=== PATIENT | male | born 1990 | race African-American/Black ===

== ENCOUNTER 2017-06-29 16:25 | Inpatient (IN) | payer SELFPAY ==
[~2017-06-29] VITALS: Ht 170.2 cm; Wt 104.4 kg
[2017-06-29 17:22] LABS: Basophils # (auto) 0.1 uL; Basophils % (auto) 0.5 % (0.0-2.0); Mean Corpuscular Hemoglobin 26.7 pg (28.0-32.0); Mean Corpuscular Hgb Conc. 32.7 g/dL (32.0-36.0); Mean Corpuscular Volume 81.8 fL (80.0-100.0); Red Cell Distribution Width 13.9 % (11.8-14.3)
[2017-06-29 17:24] LABS: Eosinophils # (auto) 0.1 uL; Eosinophils % (auto) 1.2 % (0.0-7.0); Hematocrit 43.2 % (41.0-53.0); Hemoglobin 14.1 g/dL (13.5-17.5); Lymphocytes # (auto) 0.9 uL; Lymphocytes % (auto) 7.6 % (10.0-50.0); Mean Platelet Volume 9.1 fL (6.9-10.8); Monocytes # (auto) 0.8 uL; Monocytes % (auto) 6.2 % (0.0-12.0); Neutrophils # (auto) 10.5 uL; Neutrophils % (auto) 84.5 % (37.0-80.0); Platelet Count (auto) 208 10^3/uL (140-450); White Blood Cell 12.4 10^3/uL (4.4-10.8)
[2017-06-29 17:37] LABS: INR 1.02 (0.9-1.15); Partial Thromboplastin Time 28.5 sec (22.64-33.71); Prothrombin Time 11.1 sec (9.37-12.3)
[2017-06-29 17:47] LABS: Albumin 3.8 g/dL (3.4-5.0); BUN/Creatinine Ratio 13.6; Bilirubin, Total 0.2 mg/dL (0.2-1.0); Calcium 8.4 mg/dL (8.5-10.1); Magnesium 2.2 mg/dL (1.6-2.6); Potassium 4.2 mmol/L (3.5-5.1); Total Protein 7.2 g/dL (6.4-8.2)
[2017-06-29] MEDS ORDERED: ACETAMINOPHEN 500 MG TAB PO PRN (22:15)
[2017-06-29] MEDS ORDERED: MORPHINE SULF INJ 2 MG/ML SYRINGE 1ML IV PRN (22:15)
[2017-06-29] MEDS ORDERED: HYDROcodone-ACET 5/325MG TAB PO PRN (22:15)
[2017-06-29] MEDS ORDERED: NITROGLYCERIN 0.4 MG SL TAB SL PRN (22:15)
[2017-06-29] MEDS ORDERED: ONDANSETRON HCL 4 MG/2 ML VIAL IV PRN (22:15)
[2017-06-29 22:38] LABS: Basophils # (auto) 0 uL; Basophils % (auto) 0.6 % (0.0-2.0); Eosinophils # (auto) 0.1 uL; Eosinophils % (auto) 1.7 % (0.0-7.0); Hematocrit 41.5 % (41.0-53.0); Hemoglobin 13.5 g/dL (13.5-17.5); Lymphocytes # (auto) 1.5 uL; Lymphocytes % (auto) 18.3 % (10.0-50.0); Mean Corpuscular Hemoglobin 26.5 pg (28.0-32.0); Mean Corpuscular Hgb Conc. 32.5 g/dL (32.0-36.0); Mean Corpuscular Volume 81.6 fL (80.0-100.0); Mean Platelet Volume 9.1 fL (6.9-10.8); Monocytes # (auto) 0.6 uL; Neutrophils # (auto) 5.8 uL; Neutrophils % (auto) 72.4 % (37.0-80.0); Platelet Count (auto) 187 10^3/uL (140-450); Red Cell Distribution Width 13.8 % (11.8-14.3); White Blood Cell 8.1 10^3/uL (4.4-10.8)
[2017-06-29 22:42] LABS: Urine Bilirubin Negative (Negative); Urine Blood Negative /uL (Negative); Urine Color Yellow (Yellow); Urine Glucose Normal (Normal); Urine Ketone Negative (Negative); Urine Mucus FEW (None Seen); Urine Nitrite Negative (Negative); Urine RBC <1 /hpf (0 - 3); Urine Urobilinogen Normal (Negative)
[2017-06-29] MEDS ORDERED: cloNIDine HCL 0.1 MG TAB PO PRN (22:45)
[2017-06-29 23:01] LABS: BUN/Creatinine Ratio 11.3; Calcium 8.5 mg/dL (8.5-10.1); Potassium 4.1 mmol/L (3.5-5.1)
[2017-06-30] VITALS (8 sets, daily range): BP systolic 136–160; BP diastolic 82–106
[2017-06-30] MEDS: amLODIPine BESYLATE 5 MG TAB PO SCH (10:09)
[2017-07-01 05:00] VITALS: BP 150/91
[2017-07-01 08:00] VITALS: BP 140/82
[2017-07-01 09:00] VITALS: BP 140/82
[2017-07-01] MEDS: amLODIPine BESYLATE 5 MG TAB PO SCH (09:39)
[2017-07-01] MEDS ORDERED: ATENOLOL 25 MG TAB PO SCH (10:00)
[2017-07-01 13:00] VITALS: BP 170/88
[2017-07-01 15:52] VITALS: BP 140/82
[2017-07-01 17:00] VITALS: BP 136/79
== END 2017-07-01 17:40 | disposition home or self-care (01) | DRG 151 ==
LOC: ER 16:29 → TELE 16:30 → TELE-WESTW 06-30 04:00
PROVIDERS: ADMIT Nurse Practitioner Family; ATTEND Internal Medicine Pulmonary Disease
DX: R04.0 Epistaxis (principal); E66.9 Obesity, unspecified; I10 Essential (primary) hypertension; F17.210 Nicotine dependence, cigarettes, uncomplicated; R51 Headache; Z68.36 Body mass index [BMI] 36.0-36.9, adult; Z82.49 Family history of ischemic heart disease and other diseases of the circulatory system
CPT/HCPCS: 30901; 36415; 70450; 71010; 80048; 80053; 80307; 81001; 83735; 85025; 85610; 85730; 94761; 99291

== ENCOUNTER 2017-09-28 06:22 | Emergency (ER) | payer BC ==
[~2017-09-28] VITALS: Ht 170.2 cm; Wt 102.1 kg
[2017-09-28] MEDS ORDERED: cloNIDine HCL 0.1 MG TAB ONE (06:32)
[2017-09-28] MEDS ORDERED: cloNIDine HCL 0.1 MG TAB PO ONE (06:45)
[2017-09-28 07:11] LABS: Basophils # (auto) 0 uL; Basophils % (auto) 0.4 % (0.0-2.0); Eosinophils # (auto) 0.2 uL; Hemoglobin 14.5 g/dL (13.5-17.5); Lymphocytes # (auto) 1.4 uL; Red Cell Distribution Width 14.2 % (11.8-14.3); White Blood Cell 7.2 10^3/uL (4.4-10.8)
[2017-09-28 07:13] LABS: Eosinophils % (auto) 3.2 % (0.0-7.0); Hematocrit 44.3 % (41.0-53.0); Mean Corpuscular Hemoglobin 26.6 pg (28.0-32.0); Mean Corpuscular Hgb Conc. 32.8 g/dL (32.0-36.0); Mean Corpuscular Volume 80.9 fL (80.0-100.0); Monocytes # (auto) 0.4 uL; Monocytes % (auto) 5.6 % (0.0-12.0); Neutrophils # (auto) 5.1 uL; Neutrophils % (auto) 70.8 % (37.0-80.0); Nucleated Red Blood Cells % 0.1 %; Platelet Count (auto) 202 10^3/uL (140-450); Red Blood Cells 5.47 10^6/uL (4.5-5.90)
[2017-09-28 07:27] LABS: Albumin 3.7 g/dL (3.4-5.0); BUN/Creatinine Ratio 13.5; Bilirubin, Total 0.3 mg/dL (0.2-1.0); Calcium 8.7 mg/dL (8.5-10.1); Potassium 4.3 mmol/L (3.5-5.1); Total Protein 7.3 g/dL (6.4-8.2)
[2017-09-28 10:35] LABS: Urine Bacteria NONE SEEN /hpf (None Seen); Urine Blood Negative /uL (Negative); Urine Mucus FEW (None Seen); Urine Specific Gravity 1.017 (1.001-1.035); Urine WBC 1 /hpf (0 - 3)
[2017-09-28 10:42] LABS: Alcohol, Urine < 3.0 mg/dL (0-5); Amphetamine Screen, Urine NEGATIVE (NEGATIVE); Barbiturate Scree,Urine NEGATIVE (NEGATIVE); Benzodiazephine Screen, Urine NEGATIVE (NEGATIVE); Cannabinoid Screen, Urine NEGATIVE (NEGATIVE); Cocaine Screen, Urine NEGATIVE (NEGATIVE); Opiate Scree,Urine NEGATIVE (NEGATIVE); Phencyclidine Screen, Urine NEGATIVE (NEGATIVE)
[2017-09-28 13:06] VITALS: BP 146/83
== END 2017-09-28 13:12 | disposition home or self-care (01) ==
LOC: ER 06:24
DX: I10 Essential (primary) hypertension (principal); Z90.89 Acquired absence of other organs; F17.210 Nicotine dependence, cigarettes, uncomplicated
CPT/HCPCS: 36415; 80053; 80307; 81001; 85025

== ENCOUNTER 2021-08-31 23:07 | Emergency (ER) | payer BC, OTHER ==
[~2021-08-31] VITALS: Ht 167.6 cm; Wt 108.9 kg
[2021-08-31] MEDS ORDERED: LABETALOL HCL 5 MG/ML 4ML SYRINGE IV ONE (23:45)
[2021-09-01 00:11] LABS: Basophils # (auto) 0.1 10 ^3/uL (0-0.2); Hemoglobin 14.8 g/dL (13.5-17.5); Lymphocytes # (auto) 2.3 10 ^3/uL (0.4-5.4); Neutrophils # (auto) 6.4 10 ^3/uL (1.6-8.6); Neutrophils % (auto) 65.2 % (37.0-80.0); White Blood Cell 9.8 10^3/uL (4.4-10.8)
[2021-09-01 00:14] LABS: Eosinophils # (auto) 0.3 10 ^3/uL (0-0.8); Eosinophils % (auto) 3.4 % (0.0-7.0); Hematocrit 46.2 % (41.0-53.0); Lymphocytes % (auto) 23.9 % (10.0-50.0); Mean Corpuscular Hemoglobin 25.7 pg (28.0-32.0); Mean Corpuscular Volume 80.2 fL (80.0-100.0); Monocytes # (auto) 0.6 10 ^3/uL (0-1.3); Monocytes % (auto) 6.5 % (0.0-12.0); Nucleated Red Blood Cells % 0.2 %; Red Blood Cells 5.77 10^6/uL (4.5-5.90); Red Cell Distribution Width 14.3 % (11.8-14.3)
[2021-09-01] MEDS ORDERED: hydrALAZINE HCL 20 MG/ML VL IV ONE (00:15)
[2021-09-01 00:35] LABS: Albumin 3.8 g/dL (3.4-5.0); Calcium 8.9 mg/dL (8.5-10.1); Potassium 4.5 mmol/L (3.5-5.1)
[2021-09-01 00:37] LABS: BUN/Creatinine Ratio 11.9
[2021-09-01 00:39] LABS: Bilirubin, Total 0.5 mg/dL (0.2-1.0); Total Protein 7.4 g/dL (6.4-8.2)
[2021-09-01] MEDS ORDERED: LABETALOL HCL 5 MG/ML ML 20ML VIAL IV ONE ×2 (01:24→04:19)
[2021-09-01] MEDS ORDERED: LABETALOL HCL 5 MG/ML 4ML SYRINGE IV ONE ×4 (01:30→05:30)
[2021-09-01 05:43] VITALS: BP 156/99
[2021-09-01] MEDS ORDERED: TRIA37.55 PO (06:08)
[2021-09-01] MEDS ORDERED: METO-158 PO (06:08)
== END 2021-09-01 06:25 | disposition home or self-care (01) ==
LOC: ER 23:07
DX: I16.0 Hypertensive urgency (principal); F17.210 Nicotine dependence, cigarettes, uncomplicated; Z90.89 Acquired absence of other organs
CPT/HCPCS: 36415; 70450; 80053; 85025; 96374; 96376

== ENCOUNTER 2022-09-17 19:27 | Emergency (ER) | payer OTHER ==
[~2022-09-17] VITALS: Ht 167.6 cm; Wt 108.2 kg
[~2022-09-17 19:27] MED LIST: METO-158 PO; TRIA37.55 PO
[2022-09-17 19:50] VITALS: BP 147/97
[2022-09-17] MEDS ORDERED: CEPH-510 PO (21:31)
[2022-09-17] MEDS ORDERED: IBUP800T27 PO (21:31)
[2022-09-17] MEDS ORDERED: IBUPROFEN 800 MG TAB PO ONE (21:45)
== END 2022-09-17 21:54 | disposition home or self-care (01) ==
LOC: ER 19:27
DX: S81.811A Laceration without foreign body, right lower leg, initial encounter (principal); I10 Essential (primary) hypertension; F17.210 Nicotine dependence, cigarettes, uncomplicated; Z90.89 Acquired absence of other organs; W26.0XXA Contact with knife, initial encounter; Y93.89 Activity, other specified; Y92.89 Other specified places as the place of occurrence of the external cause; Y99.8 Other external cause status
CPT/HCPCS: 12001

== ENCOUNTER 2023-05-25 17:50 | Emergency (ER) | payer OTHER ==
[~2023-05-25] VITALS: Ht 175.3 cm; Wt 112.6 kg
[~2023-05-25 17:50] MED LIST changes: +CEPH-510 PO; +IBUP-1456 PO; -TRIA37.55 PO; +TRIA37.586 PO
[2023-05-25 20:06] LABS: Basophils # (auto) 0.1 10 ^3/uL (0-0.2); Basophils % (auto) 0.6 % (0.0-2.0); Eosinophils # (auto) 0.4 10 ^3/uL (0-0.8); Eosinophils % (auto) 3.5 % (0.0-7.0); Hematocrit 43.6 % (41.0-53.0); Hemoglobin 14.1 g/dL (13.5-17.5); Lymphocytes # (auto) 2.5 10 ^3/uL (0.4-5.4); Lymphocytes % (auto) 21.8 % (10.0-50.0); Mean Corpuscular Hgb Conc. 32.3 g/dL (32.0-36.0); Mean Corpuscular Volume 80.6 fL (80.0-100.0); Monocytes # (auto) 0.8 10 ^3/uL (0-1.3); Monocytes % (auto) 6.6 % (0.0-12.0); Neutrophils # (auto) 7.8 10 ^3/uL (1.6-8.6); Neutrophils % (auto) 67.5 % (37.0-80.0); Red Blood Cells 5.41 10^6/uL (4.5-5.90); White Blood Cell 11.5 10^3/uL (4.4-10.8)
[2023-05-25 20:24] LABS: Alanine Aminotransferase 44 U/L (7-40); Albumin 4.3 g/dL (3.2-4.8); Alkaline Phosphatase 59 U/L (46-116); Anion Gap 6 (5-15); Aspartate Aminotransferase 21 U/L (13-40); BUN/Creatinine Ratio 10.5 (10.0-20.0); Bilirubin, Total 0.3 mg/dL (0.2-1.0); Blood Urea Nitrogen 12 mg/dL (9-23); Calcium 9.2 mg/dL (8.5-10.1); Carbon Dioxide 30 mmol/L (20-30); Chloride 103 mmol/L (98-107); Glucose 103 mg/dL (74-106); Potassium 3.6 mmol/L (3.5-5.1); Sodium 139 mmol/L (136-145); Total Protein 6.9 g/dL (5.7-8.2)
[2023-05-25] MEDS ORDERED: HYDR-4902 PO (21:14)
[2023-05-25] MEDS ORDERED: ZOFR4T PO (21:14)
[2023-05-25] MEDS ORDERED: HYDROcodone-ACET 7.5/325MG TAB PO ONE (21:15)
[2023-05-25] MEDS ORDERED: KETOROLAC TROMETH 60MG/2ML VIAL IM ONE (21:15)
[2023-05-25] MEDS ORDERED: PROCHLORPERAZINE EDISYLATE 5 MG/ML 2ML VIAL IM ONE (21:15)
[2023-05-25 21:34] VITALS: BP 136/99; PULSE 68; RESP 19; O2SAT 100
== END 2023-05-25 21:33 | disposition home or self-care (01) ==
LOC: ER 17:50
DX: R51.9 Headache, unspecified (principal); I10 Essential (primary) hypertension; F17.210 Nicotine dependence, cigarettes, uncomplicated; Z98.890 Other specified postprocedural states
CPT/HCPCS: 36415; 70450; 80053; 85025; 99284; J1885

== ENCOUNTER 2023-08-14 06:05 | Inpatient (IN) | payer OTHER ==
[~2023-08-14] VITALS: Ht 182.9 cm; Wt 101.8 kg
[~2023-08-14 06:05] MED LIST changes: +HYDR-4902 PO; +ZOFR4T PO
[2023-08-14] MEDS ORDERED: SODIUM CHLORIDE 0.9% 1,000 ML IVB ONE (06:45)
[2023-08-14] MEDS ORDERED: PANTOPRAZOLE 40 MG/10 ML VIAL INJ IV ONE (06:45)
[2023-08-14] MEDS ORDERED: ONDANSETRON HCL 4 MG/2 ML VIAL IV ONE (06:45)
[2023-08-14 07:06] LABS: Alanine Aminotransferase 34 U/L (7-40); Albumin 4.7 g/dL (3.2-4.8); Alkaline Phosphatase 57 U/L (46-116); Anion Gap 6 (5-15); Aspartate Aminotransferase 17 U/L (13-40); BUN/Creatinine Ratio 7.9 (10.0-20.0); Blood Urea Nitrogen 9 mg/dL (9-23); Calcium 9.6 mg/dL (8.7-10.4); Carbon Dioxide 29 mmol/L (20-30); Chloride 101 mmol/L (98-107); Glucose 134 mg/dL (74-106); Lipase 43 U/L (12-53); Potassium 3.7 mmol/L (3.5-5.1); Sodium 136 mmol/L (136-145)
[2023-08-14 07:07] LABS: Bilirubin, Total 0.3 mg/dL (0.2-1.0); Total Protein 7.5 g/dL (5.7-8.2)
[2023-08-14 07:08] LABS: Basophils # (auto) 0 10 ^3/uL (0-0.2); Eosinophils # (auto) 0 10 ^3/uL (0-0.8); Monocytes # (auto) 0.6 10 ^3/uL (0-1.3); Nucleated Red Blood Cells % 0.1 %; Red Blood Cells 5.82 10^6/uL (4.5-5.90)
[2023-08-14 07:09] LABS: Basophils % (auto) 0.4 % (0.0-2.0); Eosinophils % (auto) 0.3 % (0.0-7.0); Hematocrit 46.6 % (41.0-53.0); Hemoglobin 15.3 g/dL (13.5-17.5); Lymphocytes # (auto) 1.1 10 ^3/uL (0.4-5.4); Lymphocytes % (auto) 12.6 % (10.0-50.0); Mean Corpuscular Hemoglobin 26.3 pg (28.0-32.0); Mean Corpuscular Hgb Conc. 32.8 g/dL (32.0-36.0); Mean Corpuscular Volume 80.1 fL (80.0-100.0); Monocytes % (auto) 6.2 % (0.0-12.0); Neutrophils # (auto) 7.2 10 ^3/uL (1.6-8.6); Neutrophils % (auto) 80.5 % (37.0-80.0); Red Cell Distribution Width 14.1 % (11.8-14.3); White Blood Cell 8.9 10^3/uL (4.4-10.8)
[2023-08-14] MEDS ORDERED: MORPHINE SULFATE 4 MG/ML SYR/VIAL IV ONE ×2 (08:15→08:45)
[2023-08-14] MEDS ORDERED: DOCUSATE SOD 100 MG CAP PO PRN (10:45)
[2023-08-14] MEDS: SODIUM CHLORIDE 0.9% 1,000 ML IV SCH ×2 (10:45→20:13)
[2023-08-14] MEDS: MORPHINE SULFATE INJ 2 MG/ml SYRG IV PRN (11:27)
[2023-08-14] MEDS: METOPROLOL TARTRATE 50 MG TAB PO SCH (22:41)
[2023-08-15] MEDS ORDERED: traMADol HCL 50 MG TAB PO ONE (03:00)
[2023-08-15] MEDS: SODIUM CHLORIDE 0.9% 1,000 ML IV SCH ×3 (04:15→20:05)
[2023-08-15 06:03] VITALS: PULSE 80; RESP 18; O2SAT 100
[2023-08-15 07:10] LABS: Basophils # (auto) 0 10 ^3/uL (0-0.2); Basophils % (auto) 0.4 % (0.0-2.0); Eosinophils # (auto) 0.1 10 ^3/uL (0-0.8); Hemoglobin 13.9 g/dL (13.5-17.5); Lymphocytes # (auto) 2.3 10 ^3/uL (0.4-5.4); Mean Corpuscular Hemoglobin 26.1 pg (28.0-32.0); Mean Corpuscular Hgb Conc. 32.7 g/dL (32.0-36.0); Neutrophils # (auto) 4.8 10 ^3/uL (1.6-8.6); Nucleated Red Blood Cells % 0.1 %
[2023-08-15 07:12] LABS: Eosinophils % (auto) 1.3 % (0.0-7.0); Hematocrit 42.4 % (41.0-53.0); Lymphocytes % (auto) 28.4 % (10.0-50.0); Mean Corpuscular Volume 79.9 fL (80.0-100.0); Monocytes # (auto) 0.8 10 ^3/uL (0-1.3); Monocytes % (auto) 9.7 % (0.0-12.0); Neutrophils % (auto) 60.2 % (37.0-80.0); Red Blood Cells 5.31 10^6/uL (4.5-5.90)
[2023-08-15 07:24] LABS: Alanine Aminotransferase 29 U/L (7-40); Albumin 4.2 g/dL (3.2-4.8); Alkaline Phosphatase 50 U/L (46-116); Anion Gap 8 (5-15); Aspartate Aminotransferase 17 U/L (13-40); BUN/Creatinine Ratio 7.3 (10.0-20.0); Bilirubin, Total 0.4 mg/dL (0.2-1.0); Blood Urea Nitrogen 8 mg/dL (9-23); Carbon Dioxide 28 mmol/L (20-30); Chloride 104 mmol/L (98-107); Glucose 111 mg/dL (74-106); Potassium 3.9 mmol/L (3.5-5.1); Sodium 140 mmol/L (136-145); Total Protein 6.9 g/dL (5.7-8.2)
[2023-08-15] MEDS: TRIAMTERENE/HCTZ 37.5/25 MG CAP/TAB PO SCH (08:25)
[2023-08-15] MEDS: ONDANSETRON HCL 4 MG/2 ML VIAL IV PRN (08:30)
[2023-08-15] MEDS: MORPHINE SULFATE INJ 2 MG/ml SYRG IV PRN (08:31)
[2023-08-15 08:49] VITALS: BP 152/102; PULSE 86; RESP 20; TEMP 97.6; O2SAT 98
[2023-08-15] MEDS: METOPROLOL TARTRATE 50 MG TAB PO SCH ×2 (09:03→22:43)
[2023-08-15 11:09] LABS: INR 1.01 (0.9-1.15); Partial Thromboplastin Time 35.3 SEC (24.5-34.5); Prothrombin Time 10.6 sec (9.3-11.8)
[2023-08-15 13:00] VITALS: BP 146/86; PULSE 85; RESP 18; TEMP 98.7; O2SAT 95
[2023-08-15 16:20] VITALS: BP 146/90; PULSE 87; RESP 16; TEMP 98.9; O2SAT 92
[2023-08-15 22:00] VITALS: BP 125/74; PULSE 92; RESP 17; TEMP 98.4; O2SAT 96
[2023-08-16] VITALS (7 sets, daily range): BP systolic 124–148; BP diastolic 68–95; PULSE 72–91; RESP 14–17; TEMP 97–98.9; O2SAT 93–99
[2023-08-16] MEDS: SODIUM CHLORIDE 0.9% 1,000 ML IV SCH ×2 (04:25→17:14)
[2023-08-16] MEDS: TRIAMTERENE/HCTZ 37.5/25 MG CAP/TAB PO SCH (06:41)
[2023-08-16] MEDS: MORPHINE SULFATE INJ 2 MG/ml SYRG IV PRN ×2 (08:55→19:54)
[2023-08-16] MEDS: METOPROLOL TARTRATE 50 MG TAB PO SCH ×2 (10:56→21:11)
[2023-08-16] MEDS ORDERED: PIPERACILLIN-TAZOB 3.375GM 100 ML IV SCH (14:00)
[2023-08-16] MEDS ORDERED: MIDAZOLAM HCL 2MG/2ML 2ml VIAL (1mg/ml) ONE ×2 (14:01→16:15)
[2023-08-16] MEDS ORDERED: fentaNYL CITRATE 100 MCG/2 ML VL ONE ×3 (14:01→16:14)
[2023-08-16] MEDS ORDERED: LIDOCAINE W/ EPINEPHRINE 1% 20ML VIAL ONE (14:23)
[2023-08-16] MEDS ORDERED: ceFAZolin 1GM VL ONE (14:43)
[2023-08-16] MEDS ORDERED: DexAMETHasone SOD PHOS 10MG/1ML VIAL INJ ONE (14:46)
[2023-08-16] MEDS ORDERED: PROPOFOL 10 MG/ML 20 ML IV ONE (15:32)
[2023-08-16] MEDS ORDERED: SUGAMMADEX 200mg/2ml Vial (100MG/ML) IV ONE (15:32)
[2023-08-16] MEDS ORDERED: ONDANSETRON HCL 4 MG/2 ML VIAL ONE (15:37)
[2023-08-16] MEDS ORDERED: ACETAMINOPHEN/CODEINE#3 (300/30mg) TAB PO PRN (15:45)
[2023-08-16] MEDS ORDERED: ONDANSETRON HCL 4 MG/2 ML VIAL IV PRN (16:00)
[2023-08-16] MEDS ORDERED: HYDROmorphone HCL 2 MG/ML VL/or syr IV PRN (16:00)
[2023-08-16] MEDS ORDERED: METOCLOPRAMIDE HCL 5MG/ml INJ 2ml VIAL IV PRN (16:00)
[2023-08-16] MEDS: HYDROmorphone HCL 2 MG/ML VL/or syr IV PRN ×4 (16:15→16:45)
[2023-08-17] VITALS (7 sets, daily range): BP systolic 131–155; BP diastolic 65–96; PULSE 63–76; RESP 12–19; TEMP 98.1–98.6; O2SAT 95–98
[2023-08-17] MEDS: MORPHINE SULFATE INJ 2 MG/ml SYRG IV PRN ×2 (00:52→07:51)
[2023-08-17] MEDS: PIPERACILLIN-TAZOB 3.375GM 100 ML IV SCH ×3 (03:13→18:58)
[2023-08-17 05:26] LABS: Basophils # (auto) 0 10 ^3/uL (0-0.2); Basophils % (auto) 0.3 % (0.0-2.0); Eosinophils # (auto) 0 10 ^3/uL (0-0.8); Monocytes # (auto) 0.4 10 ^3/uL (0-1.3); White Blood Cell 10.6 10^3/uL (4.4-10.8)
[2023-08-17 05:28] LABS: Hematocrit 42.6 % (41.0-53.0); Lymphocytes # (auto) 0.9 10 ^3/uL (0.4-5.4); Lymphocytes % (auto) 8.1 % (10.0-50.0); Mean Corpuscular Hemoglobin 26.4 pg (28.0-32.0); Mean Corpuscular Hgb Conc. 32.8 g/dL (32.0-36.0); Mean Corpuscular Volume 80.4 fL (80.0-100.0); Neutrophils # (auto) 9.3 10 ^3/uL (1.6-8.6); Neutrophils % (auto) 87.6 % (37.0-80.0); Red Cell Distribution Width 13.6 % (11.8-14.3)
[2023-08-17 05:39] LABS: Alanine Aminotransferase 92 U/L (7-40); Albumin 4.1 g/dL (3.2-4.8); Alkaline Phosphatase 98 U/L (46-116); Anion Gap 6 (5-15); Aspartate Aminotransferase 70 U/L (13-40); BUN/Creatinine Ratio 7.9 (10.0-20.0); Blood Urea Nitrogen 8 mg/dL (9-23); Calcium 8.8 mg/dL (8.7-10.4); Carbon Dioxide 27 mmol/L (20-30); Chloride 107 mmol/L (98-107); Glucose 140 mg/dL (74-106); Potassium 4.1 mmol/L (3.5-5.1); Sodium 140 mmol/L (136-145)
[2023-08-17 05:40] LABS: Bilirubin, Total 0.7 mg/dL (0.2-1.0); Total Protein 6.9 g/dL (5.7-8.2)
[2023-08-17] MEDS: SODIUM CHLORIDE 0.9% 1,000 ML IV SCH (06:03)
[2023-08-17] MEDS: TRIAMTERENE/HCTZ 37.5/25 MG CAP/TAB PO SCH (06:47)
[2023-08-17] MEDS: ONDANSETRON HCL 4 MG/2 ML VIAL IV PRN (07:51)
[2023-08-17] MEDS: METOPROLOL TARTRATE 50 MG TAB PO SCH ×2 (09:11→21:35)
[2023-08-17] MEDS ORDERED: MORPHINE SULFATE INJ 2 MG/ml SYRG IV ONE (11:45)
[2023-08-17] MEDS ORDERED: MORPHINE SULFATE INJ 2 MG/ml SYRG IV PRN (11:45)
[2023-08-17] MEDS: HYDROcodone-ACET 7.5/325MG TAB PO PRN ×2 (17:20→21:35)
[2023-08-18] MEDS: PIPERACILLIN-TAZOB 3.375GM 100 ML IV SCH ×2 (02:50→11:02)
[2023-08-18 05:00] VITALS: BP 123/75; PULSE 73; RESP 17; TEMP 98.4; O2SAT 93
[2023-08-18] MEDS: TRIAMTERENE/HCTZ 37.5/25 MG CAP/TAB PO SCH (06:13)
[2023-08-18 06:27] LABS: Basophils # (auto) 0 10 ^3/uL (0-0.2); Eosinophils # (auto) 0.1 10 ^3/uL (0-0.8); Hematocrit 41.8 % (41.0-53.0); Mean Corpuscular Hgb Conc. 32.4 g/dL (32.0-36.0)
[2023-08-18 06:31] LABS: Basophils % (auto) 0.4 % (0.0-2.0); Eosinophils % (auto) 0.8 % (0.0-7.0); Hemoglobin 13.5 g/dL (13.5-17.5); Lymphocytes # (auto) 1.9 10 ^3/uL (0.4-5.4); Lymphocytes % (auto) 19.5 % (10.0-50.0); Mean Corpuscular Hemoglobin 25.9 pg (28.0-32.0); Monocytes # (auto) 0.5 10 ^3/uL (0-1.3); Monocytes % (auto) 5.3 % (0.0-12.0); Neutrophils # (auto) 7.2 10 ^3/uL (1.6-8.6); Red Blood Cells 5.23 10^6/uL (4.5-5.90); Red Cell Distribution Width 13.7 % (11.8-14.3); White Blood Cell 9.8 10^3/uL (4.4-10.8)
[2023-08-18 06:47] LABS: Alanine Aminotransferase 59 U/L (7-40); Alkaline Phosphatase 73 U/L (46-116); Anion Gap 6 (5-15); Blood Urea Nitrogen 10 mg/dL (9-23); Calcium 8.5 mg/dL (8.5-10.1); Carbon Dioxide 28 mmol/L (20-30); Chloride 106 mmol/L (98-107); Glucose 106 mg/dL (74-106); Potassium 3.4 mmol/L (3.5-5.1); Sodium 140 mmol/L (136-145)
[2023-08-18 06:48] LABS: Albumin 3.6 g/dL (3.2-4.8); Aspartate Aminotransferase 29 U/L (13-40); Bilirubin, Total 0.7 mg/dL (0.2-1.0)
[2023-08-18] MEDS: HYDROcodone-ACET 7.5/325MG TAB PO PRN ×2 (07:49→14:48)
[2023-08-18 08:00] VITALS: RESP 19
[2023-08-18 08:55] VITALS: BP 155/73; PULSE 70; RESP 14; TEMP 97.8; O2SAT 98
[2023-08-18] MEDS: METOPROLOL TARTRATE 50 MG TAB PO SCH (09:25)
[2023-08-18 13:00] VITALS: BP_SYST 145; BP_SYST 164; BP_DIAS 102; BP_DIAS 68; PULSE 67; RESP 14; TEMP 98.6; O2SAT 98
[2023-08-18] MEDS ORDERED: AMOX500T86 PO (13:45)
[2023-08-18] MEDS ORDERED: HYDR-4069 PO ×2 (13:45)
[2023-08-19] MEDS ORDERED: HYDR-4902 PO (10:49)
== END 2023-08-18 15:20 | disposition home or self-care (01) | DRG 419 ==
LOC: ER 06:05 → OVERFLOW 11:05 → EAST 08-15 08:54 → WEST WING 08-15 17:29
PROVIDERS: ADMIT Nurse Practitioner Family; ATTEND Nurse Practitioner Acute Care
PROC: 0FT44ZZ Resection of Gallbladder, Percutaneous Endoscopic Approach (ICD-10-PCS; principal; 2023-08-16 14:26)
DX: K80.62 Calculus of gallbladder and bile duct with acute cholecystitis without obstruction (principal); I10 Essential (primary) hypertension; E66.9 Obesity, unspecified; Z68.30 Body mass index [BMI] 30.0-30.9, adult; F17.210 Nicotine dependence, cigarettes, uncomplicated; Z82.3 Family history of stroke; Z82.49 Family history of ischemic heart disease and other diseases of the circulatory system; Z83.3 Family history of diabetes mellitus; Z71.6 Tobacco abuse counseling
CPT/HCPCS: 36415; 71045; 76705; 80053; 83690; 85025; 85610; 85730; 86850; 86900; 86901; 87081; 96361; 96374; 96375; 96376; C9113; G0378; J0690; J1100; J2250; J2405; J2543; J2704

== ENCOUNTER 2023-11-25 20:21 | Emergency (ER) | payer MEDICAID, OTHER ==
[~2023-11-25] VITALS: Ht 175.3 cm; Wt 110.0 kg
[2023-11-25 20:21] VITALS: BP 165/115; PULSE 82; RESP 20; O2SAT 100
[~2023-11-25 20:21] MED LIST changes: +AMOX500T86 PO
[2023-11-25 21:18] LABS: Basophils # (auto) 0.1 10 ^3/uL (0-0.2); Eosinophils # (auto) 0.4 10 ^3/uL (0-0.8); Hematocrit 43.1 % (41.0-53.0); Monocytes # (auto) 0.7 10 ^3/uL (0-1.3); Monocytes % (auto) 6.1 % (0.0-12.0); White Blood Cell 11.7 10^3/uL (4.4-10.8)
[2023-11-25 21:20] LABS: Basophils % (auto) 0.7 % (0.0-2.0); Eosinophils % (auto) 3.8 % (0.0-7.0); Lymphocytes # (auto) 2.5 10 ^3/uL (0.4-5.4); Lymphocytes % (auto) 21.1 % (10.0-50.0); Mean Corpuscular Hgb Conc. 32.5 g/dL (32.0-36.0); Mean Corpuscular Volume 80.2 fL (80.0-100.0); Neutrophils % (auto) 68.3 % (37.0-80.0); Red Blood Cells 5.38 10^6/uL (4.5-5.90); Red Cell Distribution Width 14.8 % (11.8-14.3)
[2023-11-25 21:37] LABS: Alanine Aminotransferase 34 U/L (7-40); Albumin 4.1 g/dL (3.2-4.8); Alkaline Phosphatase 64 U/L (46-116); Anion Gap 5 (5-15); Aspartate Aminotransferase 17 U/L (13-40); BUN/Creatinine Ratio 5.6 (10.0-20.0); Blood Urea Nitrogen 6 mg/dL (9-23); Calcium 9.1 mg/dL (8.7-10.4); Carbon Dioxide 26 mmol/L (20-30); Chloride 107 mmol/L (98-107); Glucose 117 mg/dL (74-106); Lipase 37 U/L (12-53); Potassium 3.7 mmol/L (3.5-5.1); Sodium 138 mmol/L (136-145)
[2023-11-25 21:38] LABS: Bilirubin, Total 0.4 mg/dL (0.2-1.0); Total Protein 6.6 g/dL (5.7-8.2)
[2023-11-25 23:41] LABS: Urine Bacteria None Seen /hpf (None Seen)
[2023-11-26 00:08] LABS: Urine Blood Negative /uL (Negative); Urine Clarity Clear (Clear); Urine Color Yellow (Yellow); Urine Hyaline Cast FEW /lpf (0 - 2); Urine Mucus FEW (None Seen); Urine Protein, UAD TRACE (Negative); Urine Specific Gravity 1.028 (1.001-1.035); Urine Urobilinogen 2 mg/dL (Negative); Urine WBC 1 /hpf (0 - 3); Urine pH 5.5 (5.0-9.0)
[2023-11-26] MEDS ORDERED: ZOFR4T PO (00:27)
[2023-11-26] MEDS ORDERED: DICY10CA PO (00:27)
[2023-11-26] MEDS ORDERED: FAMO20TA10 PO (00:27)
[2023-11-26] MEDS ORDERED: ONDANSETRON ODT 4 MG TAB PO ONE (00:30)
[2023-11-26] MEDS ORDERED: DICYCLOMINE HCL (10MG/ML) 2 ML AMPULE IM ONE (00:30)
== END 2023-11-26 01:25 | disposition home or self-care (01) ==
LOC: ER 20:21
DX: K29.00 Acute gastritis without bleeding (principal); R10.12 Left upper quadrant pain; I10 Essential (primary) hypertension; F17.210 Nicotine dependence, cigarettes, uncomplicated; Z98.890 Other specified postprocedural states; Z79.899 Other long term (current) drug therapy
CPT/HCPCS: 36415; 74176; 80053; 81001; 83690; 85025

== ENCOUNTER → 2024-08-06 | Outpatient (CLI) | payer BC ==
[~2024-08-06] MED LIST changes: +DICY10CA PO; +FAMO20TA10 PO
[2024-08-06 08:07] LABS: Urine Bacteria None Seen /hpf (None Seen); Urine WBC None Seen /hpf (0 - 3)
[2024-08-06 08:35] LABS: Basophils # (auto) 0 10 ^3/uL (0-0.2); Lymphocytes # (auto) 1.7 10 ^3/uL (0.4-5.4); Monocytes # (auto) 0.5 10 ^3/uL (0-1.3)
[2024-08-06 08:37] LABS: Basophils % (auto) 0.4 % (0.0-2.0); Eosinophils # (auto) 0.1 10 ^3/uL (0-0.8); Eosinophils % (auto) 1.6 % (0.0-7.0); Hematocrit 44.8 % (41.0-53.0); Hemoglobin 14.8 g/dL (13.5-17.5); Lymphocytes % (auto) 19.1 % (10.0-50.0); Mean Corpuscular Hemoglobin 26.3 pg (28.0-32.0); Mean Corpuscular Hgb Conc. 33.2 g/dL (32.0-36.0); Mean Corpuscular Volume 79.3 fL (80.0-100.0); Neutrophils # (auto) 6.5 10 ^3/uL (1.6-8.6); Neutrophils % (auto) 72.9 % (37.0-80.0); Platelet Count (auto) 255 10^3/uL (140-450); Red Blood Cells 5.64 10^6/uL (4.5-5.90); Red Cell Distribution Width 13.8 % (11.8-14.3); White Blood Cell 8.9 10^3/uL (4.4-10.8)
[2024-08-06 09:13] LABS: Urine Blood Negative /uL (Negative); Urine Clarity Clear (Clear); Urine Color Yellow (Yellow); Urine Protein, UAD TRACE (Negative); Urine Squamous Epithelial Cell FEW /hpf (<5); Urine Urobilinogen Normal (Negative)
[2024-08-06 09:14] LABS: Albumin 4.6 g/dL (3.2-4.8); Alkaline Phosphatase 64 U/L (46-116); Anion Gap 6 (5-15); Aspartate Aminotransferase 31 U/L (13-40); BUN/Creatinine Ratio 9.3 (10.0-20.0); Bilirubin, Total 0.5 mg/dL (0.2-1.0); Blood Urea Nitrogen 12 mg/dL (9-23); Calcium 10.1 mg/dL (8.7-10.4); Chloride 101 mmol/L (98-107); Cholesterol 160 mg/dL (< 200); HDL Cholesterol 41 mg/dL (40-59); Sodium 139 mmol/L (136-145); Total Protein 7.5 g/dL (5.7-8.2); Triglycerides 70 mg/dL (< 150)
[2024-08-06 09:17] LABS: Alanine Aminotransferase 55 U/L (7-40); Carbon Dioxide 32 mmol/L (20-31); Glucose 124 mg/dL (74-106); LDL Cholesterol 109 mg/dL (< 100); Potassium 3.4 mmol/L (3.5-5.1)
[2024-08-06 10:06] LABS: Uric Acid 9.8 mg/dL (3.7-9.2)
[2024-08-06 10:08] LABS: % Iron Saturation 22.9 % (20-55)
[2024-08-06 11:10] LABS: Free T4 (Free Thyroxine) 0.72 ng/dL (0.89-1.76)
[2024-08-06 11:21] LABS: Prostate Specific Antigen 0.96 ng/mL (0.0-4.0)
== END | disposition home or self-care (01) ==
LOC: LAB 07:54
PROVIDERS: ATTEND Internal Medicine
DX: Z00.00 Encounter for general adult medical examination without abnormal findings (principal); I10 Essential (primary) hypertension; E11.9 Type 2 diabetes mellitus without complications
CPT/HCPCS: 36415; 80053; 80061; 81001; 82043; 82306; 82607; 83036; 83540; 83550; 84153; 84403; 84439; 84550; 85025

== ENCOUNTER → 2024-11-23 | Day surgery (SDC) | payer BC ==
[2024-11-18 13:55] LABS: Urine Bacteria None Seen /hpf (None Seen)
[2024-11-18 14:04] LABS: Basophils # (auto) 0.1 10 ^3/uL (0-0.2); Hemoglobin 14.3 g/dL (13.5-17.5); Monocytes # (auto) 0.7 10 ^3/uL (0-1.3); Neutrophils # (auto) 7.5 10 ^3/uL (1.6-8.6); Platelet Count (auto) 247 10^3/uL (140-450)
[2024-11-18 14:05] LABS: Basophils % (auto) 0.6 % (0.0-2.0); Eosinophils # (auto) 0.2 10 ^3/uL (0-0.8); Eosinophils % (auto) 2.3 % (0.0-7.0); Lymphocytes # (auto) 2.5 10 ^3/uL (0.4-5.4); Lymphocytes % (auto) 22.4 % (10.0-50.0); Mean Corpuscular Hemoglobin 26.3 pg (28.0-32.0); Mean Corpuscular Hgb Conc. 33.2 g/dL (32.0-36.0); Mean Corpuscular Volume 79.1 fL (80.0-100.0); Monocytes % (auto) 6.2 % (0.0-12.0); Neutrophils % (auto) 68.5 % (37.0-80.0); Red Blood Cells 5.44 10^6/uL (4.5-5.90); Red Cell Distribution Width 14.5 % (11.8-14.3); White Blood Cell 10.9 10^3/uL (4.4-10.8)
[2024-11-18 14:09] LABS: Urine Blood Negative /uL (Negative); Urine Clarity Clear (Clear); Urine Color Light-Yellow (Yellow); Urine Protein, UAD Negative (Negative); Urine Specific Gravity 1.023 (1.001-1.035); Urine Squamous Epithelial Cell None Seen /hpf (<5); Urine Urobilinogen Normal (Negative); Urine WBC < 1 /HPF (0-3); Urine pH 6.5 (5.0-9.0)
[2024-11-18 14:19] LABS: INR 0.97 (0.9-1.15); Partial Thromboplastin Time 31.3 SEC (24.5-34.5); Prothrombin Time 10.3 sec (9.3-11.8)
[2024-11-18 14:35] LABS: Alanine Aminotransferase 40 U/L (7-40); Albumin 4.5 g/dL (3.2-4.8); Alkaline Phosphatase 60 U/L (46-116); Anion Gap 7 (5-15); Aspartate Aminotransferase 22 U/L (13-40); BUN/Creatinine Ratio 11.8 (10.0-20.0); Bilirubin, Total 0.3 mg/dL (0.2-1.0); Blood Urea Nitrogen 14 mg/dL (9-23); Calcium 9.7 mg/dL (8.7-10.4); Carbon Dioxide 30 mmol/L (20-31); Chloride 102 mmol/L (98-107); Glucose 114 mg/dL (74-106); Potassium 3.5 mmol/L (3.5-5.1); Sodium 139 mmol/L (136-145); Total Protein 7.1 g/dL (5.7-8.2)
[~2024-11-23] VITALS: Ht 175.3 cm; Wt 108.0 kg
[~2024-11-23] MED LIST changes: -AMOX500T86 PO; +BACITRACIN TOP OINT 1 UD PKG TOP ONE; -CEPH-510 PO; -DICY10CA PO; +DexAMETHasone SOD PHOS 10MG/1ML VIAL INJ ONE; -FAMO20TA10 PO; +FLUMAZENIL 0.1 MG/ML INJ 10ML MDV IV PRN; +GLYCOPYRROLATE 0.2 MG/ML 1ML VIAL ONE; -HYDR-4902 PO; +HYDROmorphone HCL 2 MG/ML VL/or syr IV PRN; -IBUP-1456 PO; +KETAMINE 50mg/ML 1ml syringe ONE; +KETOROLAC TROMETH 30 MG/ML 1ML VIAL ONE; +LIDOCAINE 1% INJ PF 5ML AMP ONE; +LIDOCAINE 1%-Mpf/Epinephrine 1:200,000 30ml VIAL ONE; -METO-158 PO; +METO50CA PO; +NALOXONE HCL 0.4 MG/ML VIAL IV PRN; +ONDANSETRON HCL 4 MG/2 ML VIAL IV PRN; +ONDANSETRON HCL 4 MG/2 ML VIAL ONE; +PROPOFOL 10 MG/ML 20 ML IV ONE; +SEMA2INJ3 SC; -ZOFR4T PO; +ceFAZolin 2 GM/D5W50ml 50 ML IV ONE; +ePHEDrine SULFATE 50 MG/ML AMP IV PRN; +fentaNYL CITRATE 100 MCG/2 ML VL IV PRN; +hydrALAZINE HCL 20 MG/ML VL IV PRN; +oxyCODONE HCL 5MG TAB PO PRN
[2024-11-23] MEDS: ACETAMINOPHEN IV 1000 MG/100ML (10MG/ML) IV ONE (08:30)
[2024-11-23 09:43] VITALS: TEMP 98.9; O2SAT 100
--- NOTE | 2024-11-23 09:49 | DVHNC2 ---
Procedure - OPERATIVE REPORT Pre-op. Diagnosis: Male Desired Sterilization Post-op. Diagnosis: Same as pre-op diagnosis Operation: Bilateral Vasectomy (No scalpel technique) Anesthesia: General Indications: INDICATION: Male Desired Sterilization CONSENT: The procedure was explained. Complications including but not limited to infection, bleeding, post-procedural swelling, potential for re-establishment of vas continuity and return of fertility were discussed. Informed consent was obtained. Details of Procedure: The patient was placed supine and general anesthesia is admininstered. His genitals were shaved, prepped, and draped in the surgical standard fashion. Using sterile techniques, bilateral vasectomy was performed using a non-scalpel technique after administration of local anesthetic using 1% Lidocaine with Epi. Both Vas Deferens were identified, brought to the surface of scrotal skin through midline puncture site, grasped, doubly clipped and ligated, the edges were fulgurated. Layer of adventitial tissue is placed between the two ends of the divided vas deferens. Hemostasis was obtained and both ends of the vas were returned to their respected locations inside the andie-scrotum. The skin puncture site is left open. Specimens: Bilateral Vas Segments Complications: None Findings: N/A Notes: DISPOSITION: Patient tolerated the procedure well and was discharged home. He will be prophylactically treated with appropriate antibiotics for 5-days. He has been instructed to refrain from sexual activity for 7-days, use scrotal support, and to apply ice pack to both andie-scrotum for 36-48 hours. He is then instructed to engage in at least 20 episodes of sexual ejaculatory episodes before obtaining a sperm analysis during a course of 4-6 weeks. Once he has been confirmed to have zero sperms count, he will then be considered sterile but he is required to use contraception until such time. Patient understands and will follow-up accordingly. Visit Code: Procedure Codes: 34739 VASECTOMY BILATERAL. EB CELESTE MD Nov 23, 2024 09:49
--- NOTE | 2024-11-23 09:50 | DVHDS2 ---
New Physician D'charge PN Admitting Diagnosis Admitting Diagnosis Vasectomy consultation Discharge Diagnosis Same Operations or Procedures Bilateral vasectomy Reason(s) For Hospitalization Surgery Treatment Plan Discharge Condition of Discharge Fair Disposition Home Discharge Instructions Diet: Regular Activity: Light activity Activity comment: Activity as tolerated Medications: Given Follow Up Care Follow Up/Referral: Sperm count in two months Discharge Statement: "Patient was advised to return to the ER or call 911 if any headaches, dizziness, shortness of breath, chest pain, abdominal pain, bleeding, fevers, or worsening of medical condition. Patient was counseled about treatment plan, medications, possible side effects, patientverbalized understanding. All questions were answered to the best of my ability. This discharge took greater then 30 minutes in planning, reviewing documentation, counseling the patient, and discussing with other team members." EB CELESTE MD Nov 23, 2024 09:50
[2024-11-23 10:38] VITALS: BP 125/79; PULSE 57; RESP 19; O2SAT 98
== END | disposition home or self-care (01) ==
LOC: SUR 06:36
PROVIDERS: ATTEND Urology
DX: Z30.2 Encounter for sterilization (principal); E11.9 Type 2 diabetes mellitus without complications; I10 Essential (primary) hypertension; E66.01 Morbid (severe) obesity due to excess calories; Z90.89 Acquired absence of other organs; Z83.3 Family history of diabetes mellitus; Z82.49 Family history of ischemic heart disease and other diseases of the circulatory system; Z98.890 Other specified postprocedural states; Z68.35 Body mass index [BMI] 35.0-35.9, adult; Z90.49 Acquired absence of other specified parts of digestive tract; Z79.899 Other long term (current) drug therapy
CPT/HCPCS: 36415; 55250; 80053; 81001; 82962; 85025; 85610; 85730; 87086; 88305; J0690; J1100; J1885; J2004; J2405; J2704; J0131